=== PATIENT | male | born 1970 | race American Indian/Alaskan Native ===

== ENCOUNTER 2020-05-02 06:11 | Day surgery (SDC) | payer OTHER ==
[2020-04-26 09:58] LABS: Hematocrit 41.6 % (35.5-45.6); Hemoglobin 14.2 gm/dl (11.8-15.2); Mean Corpuscular HGB Conc 34 % (32-34); Mean Corpuscular Volume 89 fl (84-94); Platelet Count 177 K/mm3 (140-440); Red Blood Count 4.69 M/mm3 (3.65-5.03); Red Cell Distribution Width 14.3 % (13.2-15.2)
[2020-04-26 10:11] LABS: BUN/Creatinine Ratio 18; Blood Urea Nitrogen 11 mg/dL (9-20); Calcium 9.5 mg/dL (8.4-10.2); Hemolysis Index 30
[2020-05-02] MEDS ORDERED: BACTERIOSTATIC SODIUM CHLORIDE 0.9% 30 ML VIAL INFILTRATI ONE (06:18)
--- NOTE | 2020-05-02 06:50 | Anesthesia Consultation ---
Anesthesia Consult and Med Hx Date of service: 05/02/20 - Airway Anesthetic Teeth Evaluation: Chipped (Cracked lower front) ROM Head & Neck: Adequate Mental/Hyoid Distance: Adequate Mallampati Class: Class II Intubation Access Assessment: Good - Pulmonary Exam CTA: Yes - Cardiac Exam Cardiac Exam: RRR - Pre-Operative Health Status ASA Pre-Surgery Classification: ASA2 Proposed Anesthetic Plan: General - Pulmonary Hx Smoking: Yes (STOPPED 2015) Hx Asthma: No COPD: No Hx Pneumonia: Yes Hx Sleep Apnea: No (RY PRESCREEN HIGH [SNORES]) - Cardiovascular System Hx Hypertension: Yes Hx Heart Attack/AMI: No Hx Heart Murmur: No - Central Nervous System Hx Seizures: No CVA: Yes (h/o cva, TIA) Hx Back Pain: Yes (ALSO NECK, numbness l thumb) Hx Psychiatric Problems: No - Endocrine Hx End Stage Renal Disease: No Hx Cirrhosis: No Hx Liver Disease: No - Hematic Hx Anemia: No Hx Sickle Cell Disease: Yes (TRAIT) - Other Systems Hx Alcohol Use: Yes (2 OR 3 BEERS A DAY) Hx Substance Use: No Hx Cancer: No Hx Obesity: No
--- NOTE | 2020-05-02 06:51 | Anesthesia Day of Surgery ---
Anesthesia Day of Surgery - Day of Surgery Patient Examined: Yes Patient H&P Reviewed: Yes Patient is NPO: Yes
[2020-05-02] MEDS ORDERED: CELECOXIB 200 MG CAP PO NR (07:00)
[2020-05-02] MEDS ORDERED: ceFAZolin/STERILE WATER 2 GM/20 ML SYRINGE IV NR (07:00)
[2020-05-02] MEDS ORDERED: LACTATED RINGERS 1,000 ML IV SCH (07:00)
[2020-05-02] MEDS ORDERED: GABAPENTIN 300 MG CAP PO NR (07:00)
[2020-05-02] MEDS ORDERED: MIDAZOLAM 2 MG/2 ML INJ IV NR (07:00)
[2020-05-02] MEDS ORDERED: BUPIVACAINE-EPINEPHRINE/PF 0.5%-1:200,000 (30 ML) VIAL INFILTRATI ONE (07:14)
[2020-05-02] MEDS ORDERED: LIDOCAINE (1%) 10 MG/1 ML VIAL 20 ML MDV ONE (07:14)
[2020-05-02] MEDS ORDERED: propofoL 200 MG/20 ML VIAL IV ONE (07:27)
[2020-05-02] MEDS ORDERED: dexAMETHasone 20 MG/5 ML VIAL ONE (07:27)
[2020-05-02] MEDS ORDERED: SUCCINYLCHOLINE CHLORIDE 200 MG/10 ML INJ MDV ONE (07:27)
[2020-05-02] MEDS ORDERED: NEOSTIGMINE 10MG/10 ML INJ MDV ONE (07:27)
[2020-05-02] MEDS ORDERED: LIDOCAINE MPF (2%) 20 MG/1 ML VIAL 5 ML ONE (07:27)
[2020-05-02] MEDS ORDERED: fentaNYL 100 MCG/2 ML INJ ONE (07:27)
[2020-05-02] MEDS ORDERED: ROCURONIUM 50 MG/5 ML INJ IV ONE (07:27)
[2020-05-02] MEDS ORDERED: PHENYLEPHRINE/NS 1,000 MCG/10 ML SYRINGE (OR USE) IV ONE (07:27)
[2020-05-02] MEDS ORDERED: ONDANSETRON 4 MG/2 ML INJ ONE (07:27)
[2020-05-02] MEDS ORDERED: GLYCOPYRROLATE 0.4 MG/2 ML INJ ONE (07:27)
[2020-05-02] MEDS ORDERED: ePHEDrine SULFATE 50 MG/1 ML INJ ONE (07:36)
[2020-05-02] MEDS ORDERED: BUPIVACAINE/PF (0.5%) 5 MG/1 ML 30 ML VIAL INFILTRATI ONE ×2 (07:49→08:20)
[2020-05-02] MEDS ORDERED: ESMOLOL 100 MG/10 ML INJ IV ONE (08:00)
[2020-05-02] MEDS ORDERED: WATER FOR IRRIG STERILE 1,500 ML BOTTLE IR ONE (08:21)
[2020-05-02] MEDS ORDERED: LIDOCAINE (1%) 10 MG/1 ML VIAL 20 ML MDV INFILTRATI ONE (08:21)
[2020-05-02] MEDS ORDERED: HYDROmorphone 1 MG/1 ML INJ ONE ×2 (08:23→08:34)
--- NOTE | 2020-05-02 10:51 | Post Operative Note ---
Pre-op diagnosis: bilateral inguinal hernia, umbilical hernia Post-op diagnosis: same Findings: 1. Large direct Left inguinal hernia with adhesions from sigmoid colon to peritoneum in LLQ at site of hernia - repaired with large Left bard 3d max mesh 2. Small direct Right inguinal hernia with minimal adhesions from cecum to peritoneum - repaired with medium Right bard 3d max mesh 3. Tiny umbilical hernia containing a small amount of preperitoneal fat - repaired primarily Procedure: robotic assisted laparoscopic lysis of adhesions, bilateral inguinal hernia repair with mesh, open primary umbilical hernia repair, b/l ilioinguinal nerve block Anesthesia: GETA, local Surgeon: MARY BLACK Concierge Receptionist: PARTH JACOME Estimated blood loss: minimal Pathology: none Condition: stable Disposition: PACU
--- NOTE | 2020-05-02 10:54 | Short Stay Summary ---
Short Stay Documentation Date of service: 05/02/20 - History Principal diagnosis: bilateral inguinal hernia, umbilical hernia H&P: obtained from office - Allergies and Medications Current Medications: Allergies No Known Allergies Allergy (Verified 04/25/20 16:52) Home Medications Medication Instructions Recorded Confirmed Last Taken Type Aspirin [Adult Aspirin] 81 mg PO DAILY 04/24/20 05/02/20 1 Week Ago History ~04/25/20 Atorvastatin 40 mg PO DAILY 04/24/20 05/02/20 05/02/20 05:00 History Lisinopril 20 mg PO DAILY 04/24/20 05/02/20 05/01/20 History Active Medications Cefazolin Sodium (Cefazolin/Sterile Water 2 Gm/20 Ml Syringe) 2 gm IV PREOP NR Stop: 05/02/20 23:00 Celecoxib (Celecoxib 200 Mg Cap) 200 mg PO PREOP NR Stop: 05/02/20 23:45 Last Admin: 05/02/20 07:05 Dose: 200 mg Documented by: Gabapentin (Gabapentin 300 Mg Cap) 300 mg PO PREOP NR Stop: 05/02/20 23:45 Last Admin: 05/02/20 07:05 Dose: 300 mg Documented by: Lactated Ringer's (Lactated Ringers) 1,000 mls @ 100 mls/hr IV DIRECT LEX Last Admin: 05/02/20 07:05 Dose: 100 mls/hr Documented by: Midazolam HCl (Midazolam 2 Mg/2 Ml Inj) 2 mg IV PREOP NR Stop: 05/02/20 23:59 Last Admin: 05/02/20 07:06 Dose: 2 mg Documented by: - Brief post op/procedure progress note Date of procedure: 05/02/20 - Hospital course Hospital course: Pt observed in PACU and discharged to home in stable condition when criteria met - Disposition Condition at discharge: Good Disposition: DC-[id number] TO HOME OR SELFCARE Short Stay Discharge Plan Activity: other (no heavy lifting of greater than 15 lbs for next 6 weeks) Diet: low fat Wound: open to air, per your surgeon's advice (May shower tomorrow, pat incisions dry and do not scrub. Do not submerge incisions in water) Follow up with: RODO BOWDEN MD [Primary Care Provider] - 7 Days MARY BLACK DO [Staff Physician] - 14 Days Prescriptions: Gabapentin 300 mg PO BID #6 capsule Ibuprofen [Motrin 800 MG tab] 800 mg PO Q8HR PRN #30 tablet PRN Reason: Pain, Moderate (4-6) HYDROcodone/APAP 5-325 [[place] 5/325] 1 each PO Q6HR PRN #20 tablet PRN Reason: Pain , Severe (7-10)
[2020-05-02] MEDS ORDERED: HYDROcodone/ACETAMINOPHEN 5-325 MG TAB PO PRN (11:18)
[2020-05-02 12:09] VITALS: BP 135/84
--- NOTE | 2020-05-02 16:29 | Post Anesthesia Evaluation ---
- Post Anesthesia Evaluation Patient Participated: Yes Airway Patent: Yes Stable Respiratory Function: Yes Nausea/Vomiting: No Temp > 96.8F: Yes Pain Manageable: Yes Adequeate Hydration: Yes Anesthesia Complications: No Block Receding Appropriately: Not Applicable Patient on Ventilator: No
--- NOTE | 2020-05-02 17:03 | Operative Report ---
Operative Report Operative Report: Date: 05/02/20 Pre-op diagnosis: bilateral inguinal hernia, umbilical hernia Post-op diagnosis: same Findings: 1. Large direct Left inguinal hernia with adhesions from sigmoid colon to peritoneum in LLQ at site of hernia - repaired with large Left bard 3d max mesh 2. Small direct Right inguinal hernia with minimal adhesions from cecum to peritoneum - repaired with medium Right bard 3d max mesh 3. Tiny umbilical hernia containing a small amount of preperitoneal fat - repaired primarily Procedure: robotic assisted laparoscopic lysis of adhesions, bilateral inguinal hernia repa ir with mesh, open primary umbilical hernia repair, b/l ilioinguinal nerve block Anesthesia: AGUSA, local Surgeon: MARY BLACK Dispatcher Motor Vehicle: PARTH JACOME Estimated blood loss: minimal Pathology: none Condition: stable Disposition: PACU HPI and indication: Patient is a 50-year-old male who was referred to the surgery clinic for a bulge in the left groin. He was found to have a reducible left inguinal hernia on physical exam along with a small but reducible right inguinal hernia. Patient also had a small umbilical hernia containing fat. The patient relate a history of having a job that required strenuous activity and heavy lifting. Therefore, it was recommended that bilateral inguinal and the umbilical hernia be repaired. I discussed all risk, benefits, alternatives to repair with the patient and questions were answered. The patient was agreeable. Consent obtained for robotic assisted bilateral inguinal hernia repair with mesh, umbilical hernia repair with possible mesh, possible open. Preoperative Covid testing was negative. Procedure in detail: Patient was identified in the preoperative area, take back to operating room placed on operative table in supine position. After anesthesia was induced both arms were tucked and all bony prominences padded appropriately. A Jones catheter was sterilely placed by the circulating nurse. The abdomen and b/l groins were then prepped and draped in usual sterile fashion and a timeout performed. Local anesthetic was infiltrated to skin at the intended incision sites. A supraumbilical incision was made through which a Veress needle was inserted. Veress needle positioning was confirmed using saline drop test and the abdomen insufflated to 15 mmHg. Once the abdomen was insufflated, the Veress needle was removed and a 5 mm Optiview trocar was placed as incision. The abdomen is inspected there was no underlying injury to any of the abdominal structures. Patient was placed in Trendelenburg and the pelvis examined. There was a left inguinal hernia with adhesions from the omentum and sigmoid colon to the peritoneum in the left lower quadrant. There was also a small direct right inguinal hernia with minimal adhesions from the cecum to the lateral aspect of the peritoneum in the right lower quadrant. At this point, an 8 mm right upper quadrant and left upper quadrant robotic trocars were then placed under direct visualization. The umbilical hernia was visualized and appeared to contain preperitoneal fat. The 5 mm trocar was removed. A cutdown was performed at the umbilicus by extending the incision slightly and dissecting through the skin and subcutaneous tissue until the hernia was identified. The preperitoneal fat was dissected free from the umbilicus and reduced. A 12 mm balloon trocar was placed through the fascial defect. A Ray-Presley was placed into the abdomen. The robot was then docked. A fenestrated bipolar was placed into arm #2 and a monopolar scissor in arm #1. The surgeon was then transferred to the console. First, lysis of adhesions was performed in the left lower quadrant. This was necessary in order to create a preperitoneal flap. Adhesions from the omentum and colon to the peritoneum were dissected very meticulously using a combination of blunt dissection near the bowel and electrocautery when it was safe. Once lysis of adhesions was satisfactory, a left-sided preperitoneal flap was created. The peritoneum was scored approximately 5 to 6 cm from the hernia defect. The peritoneum was then incised from the midline to the ASIS. The preperitoneal flap was then developed in an avascular plane. I first defined the medial margin by dissecting to the pubic tubercle. The pubic tubercle was cleared of overlying fatty tissue using blunt dissection. I then created the lateral margin in a similar fashion. Great care was taken to avoid injury to any nerves. There was a large direct inguinal hernia and the hernia sac was gently reduced using blunt dissection and transecting cremasteric fibers with electrocautery. During the dissection, the cord structures were identified along with the epigastric vessels. There was no injury to the structures and no indirect hernia identified. Once the hernia sac was completely reduced, the peritoneal flap was checked for hemostasis. Any additional cremasteric fibers that were were tenting up the peritoneum were divided. Hemostasis was carefully ensured. Next, I proceeded to the dissection on the right. The preperitoneal flap was created in a similar fashion. An adhesion from the cecum to the lateral abdominal wall in the right lower quadrant was carefully taken down. Once the flap was created, a small direct hernia was identified. The hernia sac was gently reduced and cremasteric fibers divided. I identified the epigastric vess els along with the cord structures. There was no indirect hernia. The flap was checked for hemostasis which was carefully ensured. Once this dissection was complete, the hernias were repaired using mesh. The right-sided hernia was repaired with a right medium 3D max mesh in the left sided hernia repair with a large left 3D max mesh. The mesh and suture material was placed into the abdomen by the assistant statistician surgeon. First the right-sided mesh was positioned in the preperitoneal flap and sutured to the pubic tubercle and the lateral abdominal wall using interrupted 2-0 Vicryl sutures. There was adequate coverage. The left side redundant hernia sac was grasped and sutured to the pubic tubercle using interrupted 2-0 Vicryl stitch in order to obliterate some space. The left-sided mesh was then positioned in the left preperitoneal flap and sutured in place in a similar fashion to the right side with excellent coverage. The preperitoneal flaps were then approximated using 3-0 running V- Loc stitch x2. The entirety of the mesh was covered with peritoneum. The robot was then undocked and the surgeon scrubbed back in. The remainder of the case was performed laparoscopically. Bilateral ilioinguinal nerve block was performed with 5 cc of local anesthetic on each side. All sharp materials along with a Ray-Presley were removed from the abdomen under direct visualization. The 12 mm port was removed and the fascia closed using a figure of 8, 0 Vicryl stitch. The abdomen was then slowly desufflated and the mesh was seen to lay flat in the preperitoneal space. The remaining trocars were removed. Skin incisions were once again infiltrated with local anesthetic. The umbilicus was tacked down to the fascia using interrupted 3-0 Vicryl stitch. The skin incisions were approximated with 4-0 Monocryl subcuticular stitches and skin glue. At the end of the case all sponge, instrument, sharp counts were correct x2. Patient was awoken from anesthesia and Jones catheter removed. Both testicles were palpated in the scrotum in anatomic position. The patient was taken to PACU in stable condition.
== END 2020-05-02 12:20 | disposition home or self-care (01) ==
LOC: OR 06:11
PROVIDERS: ATTEND Surgery
DX: K40.20 Bilateral inguinal hernia, without obstruction or gangrene, not specified as recurrent (principal); K42.9 Umbilical hernia without obstruction or gangrene; K66.0 Peritoneal adhesions (postprocedural) (postinfection); E78.00 Pure hypercholesterolemia, unspecified; I10 Essential (primary) hypertension; K21.9 Gastro-esophageal reflux disease without esophagitis; M19.90 Unspecified osteoarthritis, unspecified site; Z20.822 Contact with and (suspected) exposure to COVID-19; Z79.899 Other long term (current) drug therapy; Z79.82 Long term (current) use of aspirin; Z87.891 Personal history of nicotine dependence; Z87.01 Personal history of pneumonia (recurrent); Z72.89 Other problems related to lifestyle; Z98.890 Other specified postprocedural states; Z86.73 Personal history of transient ischemic attack (TIA), and cerebral infarction without residual deficits
CPT/HCPCS: 36415; 49585; 49650; 80048; 85027; C1781; J0330; J0690; J1100; J1170; J2250; J2370; J2405; J2704; J2710; J3010; J7120; S2900; U0003